=== PATIENT | male | born 1960 | race Two or more races ===

== ENCOUNTER 2021-10-21 08:57 | Emergency (ER) | payer OTHER ==
[2021-10-21 10:00] LABS: HEMOGLOBIN 15.6 gm/dl (14.0-17.5); RED BLOOD COUNT 4.94 M/UL (4.20-5.50); WHITE BLOOD COUNT 8.5 K/UL (4.5-11.0)
[2021-10-21 13:06] LABS: BUN/CREATININE RATIO 8 (0-10)
== END 2021-10-21 16:10 | disposition short-term general hospital (02) ==
LOC: ER1 08:57
PROVIDERS: Emergency Medicine
DX: S22.081A Stable burst fracture of T11-T12 vertebra, initial encounter for closed fracture (principal); S10.93XA Contusion of unspecified part of neck, initial encounter; V49.40XA Driver injured in collision with unspecified motor vehicles in traffic accident, initial encounter; Y92.410 Unspecified street and highway as the place of occurrence of the external cause
CPT/HCPCS: 70450; 71260; 72125; 80053; 81001; 82550; 82553; 84484; 85025; 93005; 99285; J2270; J2405; Q9967